=== PATIENT | female | born 1965 | race Caucasian/White ===

== ENCOUNTER 2016-03-07 09:38 | Day surgery (SDC) | payer OTHER ==
[2016-03-07] MEDS ORDERED: LACTATED RINGERS 1,000 ML IV ONE (10:16)
[2016-03-07] MEDS ORDERED: fentaNYL 250 MCG/5 ML VIAL IVP ONE (11:10)
[2016-03-07] MEDS ORDERED: MIDAZOLAM 2 MG/2 ML VIAL IVP ONE (11:10)
== END 2016-03-07 09:39 | disposition home or self-care (01) ==
PROC: 0DBM8ZZ Excision of Descending Colon, Via Natural or Artificial Opening Endoscopic (ICD-10-PCS; 2016-03-07)
PROC: 0DBN8ZZ Excision of Sigmoid Colon, Via Natural or Artificial Opening Endoscopic (ICD-10-PCS; principal; 2016-03-07 11:45)
DX: Z12.11 Encounter for screening for malignant neoplasm of colon (principal); D12.5 Benign neoplasm of sigmoid colon; D12.4 Benign neoplasm of descending colon; J45.909 Unspecified asthma, uncomplicated; Z85.72 Personal history of non-Hodgkin lymphomas
CPT/HCPCS: 45380; 45385; J7120

== ENCOUNTER 2016-05-10 09:14 | Outpatient (CLI) | payer OTHER | END 2016-05-10 09:15 | disposition critical access hospital (66) | DX: R09.89 Other specified symptoms and signs involving the circulatory and respiratory systems (principal) | CPT/HCPCS: A0425; A0427 ==

== ENCOUNTER 2016-05-10 09:19 | Emergency (ER) | payer OTHER ==
[2016-05-10] MEDS ORDERED: IPRATROPIUM/ALBUTEROL 3 ML NEB INH STA (09:27)
[2016-05-10] MEDS ORDERED: predniSONE 20 MG TABLET PO STA (09:27)
[2016-05-10] MEDS ORDERED: predniSONE 20 MG TABLET ONE (09:40)
[2016-05-10] MEDS: ALBUTEROL NEB 2.5 MG/3 ML INH STA ×2 (10:25→11:10)
[2016-05-10] MEDS ORDERED: BENZONATATE 100 MG CAPSULE PO STA (10:37)
[2016-05-10] MEDS ORDERED: BENZONATATE 100 MG CAPSULE PO ONE (10:45)
== END 2016-05-10 11:38 | disposition home or self-care (01) ==
DX: J45.21 Mild intermittent asthma with (acute) exacerbation (principal)
CPT/HCPCS: 94640; 94664; 99283; A9270; J7512; J7613; J7620

== ENCOUNTER 2016-06-05 08:43 | Outpatient (CLI) | payer OTHER | END 2016-06-05 08:44 | DX: Z11.3 Encounter for screening for infections with a predominantly sexual mode of transmission (principal) ==